=== PATIENT | female | born 1940 | race African-American/Black ===

== ENCOUNTER 2017-02-10 10:03 | Emergency (ER) | payer MEDICARE ==
[~2017-02-10] VITALS: Ht 165.1 cm; Wt 69.0 kg
[~2017-02-10 10:03] MED LIST: AMIT10; AMLO5TAB96 PO; ASPI81 PO; GLYB1TAB51 PO; LISI40TA PO; LOVA10TA PO; METF-324 PO; [UNRECOGNIZED DRUG - CODE] OR
[2017-02-10 10:05] VITALS: BP 151/80; PULSE 76; RESP 16; TEMP 98.8; O2SAT 99
[2017-02-10] MEDS ORDERED: METF1000 PO (10:29)
[2017-02-10] MEDS ORDERED: GLIP10TA6 PO (10:29)
[2017-02-10] MEDS ORDERED: AMLO10TA2 PO (10:29)
[2017-02-10] MEDS ORDERED: LATA0.002 EACH EYE (10:29)
[2017-02-10] MEDS ORDERED: OMEP20TA PO (10:29)
[2017-02-10] MEDS ORDERED: TIMO0.5S30 RIGHT EYE (10:29)
[2017-02-10] MEDS ORDERED: VITA1000 PO (10:29)
[2017-02-10] MEDS ORDERED: ASPI1TAB69 PO (10:29)
[2017-02-10] MEDS ORDERED: LOVA10TA PO (10:29)
[2017-02-10] MEDS ORDERED: LOSA100T PO (10:29)
[2017-02-10] MEDS ORDERED: SODIUM CHLORIDE 0.9% FLUSH 10 ML FLUSH IV FLUSH PRN (10:30)
[2017-02-10 10:32] VITALS: BP 137/66; PULSE 75; RESP 16; O2SAT 99
[2017-02-10 10:41] LABS: AUTOMATED NEUTROPHIL # 5.2 TH/MM3 (1.8-7.7); BASOPHIL # 0.1 TH/MM3 (0-0.2); BASOPHIL % 0.9 % (0.0-2.0); EOSINOPHIL # 0.1 TH/MM3 (0-0.4); HEMATOCRIT 39.7 % (35.0-46.0); HEMO FLAGS DIFF FINAL; LYMPH % 20.5 % (9.0-44.0); LYMPHOCYTE # 1.5 TH/MM3 (1.0-4.8); MEAN CELL VOLUME 90.6 FL (80.0-100.0); MEAN CORPUSCULAR HEMOGLOBIN 30.4 PG (27.0-34.0); MEAN CORPUSCULAR HGB CONC 33.6 % (32.0-36.0); MONO % 7.6 % (0.0-8.0); PLATELET COUNT 356 TH/MM3 (150-450); RED BLOOD COUNT 4.38 MIL/MM3 (4.00-5.30); RED CELL DISTRIBUTION WIDTH 14.7 % (11.6-17.2); WHITE BLOOD COUNT 7.4 TH/MM3 (4.0-11.0)
[2017-02-10 10:43] LABS: BACTERIA, URINE RARE /hpf; BLOOD, URINE NEG (NEG); COMMENT (UR) CULT NOT INDICATED; CULTURE IF INDICATED CULT NOT INDICATED; GLUCOSE,URINE 1000 mg/dL (NEG); KETONE, URINE NEG (NEG); NITRITE,URINE NEG (NEG); PH, URINE 5.5 (5.0-8.5); SQUAMOUS EPITHELIAL CELL URINE 2 /hpf (0-5); URINE COLOR YELLOW (YELLW/STRAW)
[2017-02-10] MEDS ORDERED: ONDANSETRON HCL 4 MG/2 ML VIAL IV PUSH ONE (10:45)
[2017-02-10] MEDS ORDERED: MORPHINE SULFATE 4 MG/ML INJ IV PUSH ONE (10:45)
--- NOTE | 2017-02-10 10:45 | PD ---
HPI Chief Complaint: Abdominal Pain Time Seen by Provider: 10:17 Travel History International Travel<30 days: No Contact w/Intl Traveler<30days: No Traveled to known affect area: No History of Present Illness HPI Patient is 76-year-old female presents emergency department for evaluation of right upper quadrant abdominal pain as well as some nausea with out vomiting. Patient states she's had this in the past was told she had gallstones. She has an appointment to follow-up with Dr. Corona later this week. She states that the pain started about 0200 and has been steady since then. She does admit that she had a small [employer] ke[employer] and some serbian fries for dinner last night. Denies any fever denies any diarrhea blood in the stool emesis. PFSH Past Medical History High Cholesterol: Yes Diabetes: Yes Patient Takes Glucophage: Yes GERD: Yes Hypertension: Yes Influenza Vaccination: Yes ?: Not : 6 Para: 6 Past Surgical History Eye Surgery: Yes (CATARACT BOTH EYES) Hysterectomy: Yes Other Surgery: Yes (LYMPH NODES RIGHT BREAST-NON CAnCER) Social History Alcohol Use: Yes (OCCASIONAL) Tobacco Use: No Substance Use: No Allergies-Medications (Allergen,Severity, Reaction): Coded Allergies: Adhesives (Verified Allergy, Intermediate, HIVES, 02/10/17) Talwin (Verified Allergy, Mild, [id number], 02/10/17) Reported Meds & Prescriptions Reported Meds & Active Scripts Active Zofran Odt (Ondansetron Odt) 4 Mg Tab 4 Mg SL Q6HR PRN Reported Timolol Opth Drops 0.5 % Soln 1 Drop RIGHT EYE DAILY Latanoprost Opth Drops (Latanoprost) 0.005% Drops 1 Drop EACH EYE HS Refrigerate until opened. Metformin (Metformin HCl) 1,000 Mg Tab 1,000 Mg PO BIDPC With meals Glipizide 10 Mg Tab 15 Mg PO BIDAC Take 30 minutes before a meal Aspirin 81 Mg Tabdr 81 Mg PO DAILY Amlodipine (Amlodipine Besylate) 10 Mg Tab 10 Mg PO DAILY Lovastatin 10 Mg Tab 10 Mg PO DAILY Losartan (Losartan Potassium) 100 Mg Tab 100 Mg PO DAILY Omeprazole 20 Mg Tab 20 Mg PO DAILY Vitamin D-1000 (Cholecalciferol) 1,000 Unit Tab 1,000 Units PO DAILY Review of Systems Except as stated in HPI: all other systems reviewed are Neg Physical Exam Narrative GENERAL: Well-developed well-nourished no apparent distress SKIN: Focused skin assessment warm/dry. HEAD: Atraumatic. Normocephalic. EYES: Pupils equal and round. No scleral icterus. No injection or drainage. ENT: No nasal bleeding or discharge. Mucous membranes pink and moist. NECK: Trachea midline. No JVD. CARDIOVASCULAR: Regular rate and rhythm. No murmur appreciated. RESPIRATORY: No accessory muscle use. Clear to auscultation. Breath sounds equal bilaterally. GASTROINTESTINAL: Abdomen soft, minimally tender in the right upper quadrant, nondistended. Hepatic and splenic margins not palpable. Osborne sign negative. MUSCULOSKELETAL: No obvious deformities. No clubbing. No cyanosis. No edema. NEUROLOGICAL: Awake and alert. No obvious cranial nerve deficits. Motor grossly within normal limits. Normal speech. PSYCHIATRIC: Appropriate mood and affect; insight and judgment normal. Data Data Last Documented VS Vital Signs Date Time Temp Pulse Resp B/P Pulse Ox O2 Delivery O2 Flow Rate FiO2 02/10/17 11:59 66 16 138/68 99 Room Air 02/10/17 10:05 98.8 Orders Complete Blood Count With Diff (02/10/17 10:18) Comprehensive Metabolic Panel (02/10/17 10:18) Lipase (02/10/17 10:18) Urinalysis - C+S If Indicated (02/10/17 10:18) Iv Access Insert/Monitor (02/10/17 10:18) Ecg Monitoring (02/10/17 10:18) Oximetry (02/10/17 10:18) Sodium Chloride 0.9% Flush (Ns Flush) (02/10/17 10:30) Morphine Inj (Morphine Inj) (02/10/17 10:45) Ondansetron Inj (Zofran Inj) (02/10/17 10:45) Us Abdomen Gallbladder (02/10/17 ) Labs Laboratory Tests Test 02/10/17 10:20 White Blood Count 7.4 TH/MM3 Red Blood Count 4.38 MIL/MM3 Hemoglobin 13.3 GM/DL Hematocrit 39.7 % Mean Corpuscular Volume 90.6 FL Mean Corpuscular Hemoglobin 30.4 PG Mean Corpuscular Hemoglobin 33.6 % Concent Red Cell Distribution Width 14.7 % Platelet Count 356 TH/MM3 Mean Platelet Volume 7.5 FL Neutrophils (%) (Auto) 70.0 % Lymphocytes (%) (Auto) 20.5 % Monocytes (%) (Auto) 7.6 % Eosinophils (%) (Auto) 1.0 % Basophils (%) (Auto) 0.9 % Neutrophils # (Auto) 5.2 TH/MM3 Lymphocytes # (Auto) 1.5 TH/MM3 Monocytes # (Auto) 0.6 TH/MM3 Eosinophils # (Auto) 0.1 TH/MM3 Basophils # (Auto) 0.1 TH/MM3 CBC Comment DIFF FINAL Differential Comment Urine Color YELLOW Urine Turbidity HAZY Urine pH 5.5 Urine Specific Matthews 1.028 Urine Protein TRACE mg/dL Urine Glucose (UA) 1000 mg/dL Urine Ketones NEG mg/dL Urine Occult Blood NEG Urine Nitrite NEG Urine Bilirubin NEG Urine Urobilinogen LESS THAN 2.0 MG/DL Urine Leukocyte Esterase NEG Urine RBC 1 /hpf Urine WBC 1 /hpf Urine Squamous Epithelial 2 /hpf Cells Urine Bacteria RARE /hpf Microscopic Urinalysis Comment CULT NOT INDICATED Sodium Level 135 MEQ/L Potassium Level 4.4 MEQ/L Chloride Level 98 MEQ/L Carbon Dioxide Level 30.4 MEQ/L Anion Gap 7 MEQ/L Blood Urea Nitrogen 12 MG/DL Creatinine 0.84 MG/DL Estimat Glomerular Filtration 80 ML/MIN Rate Random Glucose 301 MG/DL Calcium Level 9.4 MG/DL Total Bilirubin 0.4 MG/DL Aspartate Amino Transf 13 U/L (AST/SGOT) Alanine Aminotransferase 18 U/L (ALT/SGPT) Alkaline Phosphatase 69 U/L Total Protein 8.1 GM/DL Albumin 3.9 GM/DL Lipase 158 U/L [facility] Medical Decision Making Medical Screen Exam Complete: Yes Emergency Medical Condition: Yes Differential Diagnosis Cholecystitis, biliary colic, gastritis, gastroenteritis. Narrative Course Patient is a very pleasant 76-year-old female presents emergency Department right upper quadrant abdominal pain. She is given pain medicine and had significant reduction of her pain. She does have a history of gallstones and an ultrasound has been ordered of her right upper quadrant. Last 24 hours Impressions Gall Bladder Ultrasound 02/10/17 0000 Signed Impressions: Service Date/Time: Friday, February 10, 2017 11:35 - CONCLUSION: 1. The gallbladder is within normal limits with no evidence of cholelithiasis. 2. The pancreatic duct is at the upper limits of normal measuring 3 mm. 3. The common bile duct is also at the upper limits of normal measuring 7 mm. Walter Yan MD Patient labs are fairly reassuring, she does have elevated blood glucose of 301 , she is a known diabetic. No evidence of DKA. UA negative. Discussed results with the patient that she currently does not have any gallstones and given that she has a history of gallstones she may have passed one recently. She does have an appointment with a surgeon this week. She is urged to keep that appointment for further workup. At this time she is feeling better like to go home. Discussed symptomatic management bland diet and avoid fatty foods. Discussed return to ED criteria. Diagnosis Primary Impression: RUQ abdominal pain Additional Instructions: No gallstones on her ultrasound today and no evidence of cholecystitis. Recommend continuing follow-up with Dr. Corona. Also recommend he follow-up with a fitness specialist either the physician he saw on the past review can see Dr. Morillo. Recommend staying blander diet for the next 2 days. Return to emergency department as needed. Med/Other Pt SpecificInfo: Prescription(s) given Scripts Ondansetron Odt (Zofran Odt)4 Mg Tab4 Mg SL Q6HR PRN (Nausea/Vomiting) #30 TAB Ref 0 Prov:Michele Layton MD 02/10/17 Disposition: 01 DISCHARGE HOME Condition: Stable Michele Layton MD February 10, 2017 10:45
[2017-02-10 11:02] LABS: ANION GAP 7 MEQ/L (5-15); AST (GOT) 13 U/L (15-37); BICARBONATE 30.4 MEQ/L (21.0-32.0); BLOOD UREA NITROGEN 12 MG/DL (7-18); CHLORIDE 98 MEQ/L (98-107); GLOMERULAR FILTRATION RATE 80 ML/MIN (>89); POTASSIUM 4.4 MEQ/L (3.5-5.1); SODIUM (NA) 135 MEQ/L (136-145)
[2017-02-10 11:06] LABS: ALKALINE PHOSPHATASE 69 U/L (45-117); ALT (GPT) 18 U/L (10-53); TOTAL BILIRUBIN ADULT 0.4 MG/DL (0.2-1.0)
[2017-02-10 11:59] VITALS: BP 138/68; PULSE 66; RESP 16; O2SAT 99
--- NOTE | 2017-02-10 12:23 | RADRPT ---
EXAM DATE/TIME: 02/10/2017 11:35 [facility] COMPARISON: No previous studies available for comparison. EXTERNAL COMPARISON : NXVISION, Placed Biliary Scan. December 07, 2016 INDICATIONS : Right upper quadrant pain, nausea and vomiting. MEDICAL HISTORY : Gastroesophageal reflux disease. Hypercholesterolemia. SURGICAL HISTORY : Lymph nodes removed from right breast, non cancerous. Hysterectomy. Cataracts. ENCOUNTER: Initial ACUITY: 1 day PAIN SCORE: 6/10 LOCATION: Right upper quadrant MEASUREMENTS: LIVER: 16.8 cm length COMMON DUCT: 7 mm RIGHT KIDNEY: 11.3 x 5.4 x 5.4 cm FINDINGS: LIVER: Normal echotexture without focal lesion or ductal dilatation. COMMON DUCT: No intraluminal mass or stone visualized. GALLBLADDER: Contains no stones, demonstrates no wall thickening or pericholecystic fluid. PANCREAS: The visualized portions are within normal limits. RIGHT KIDNEY: No evidence of hydronephrosis, stone, or mass. CONCLUSION: 1. The gallbladder is within normal limits with no evidence of cholelithiasis. 2. The pancreatic duct is at the upper limits of normal measuring 3 mm. 3. The common bile duct is also at the upper limits of normal measuring 7 mm. Walter Yan MD on February 10, 2017 at 12:19 Board Certified Radiologist. This report was verified electronically.
[2017-02-10] MEDS ORDERED: ZOFR4TAB3 SL (12:38)
== END 2017-02-10 13:35 | disposition home or self-care (01) ==
LOC: NEPE 10:03
DX: R10.11 Right upper quadrant pain (principal); E11.65 Type 2 diabetes mellitus with hyperglycemia; Z79.84 Long term (current) use of oral hypoglycemic drugs
CPT/HCPCS: 76705; 80053; 81001; 83690; 85025; 96374; 96375; 99284; J2270; J2405